=== PATIENT | male | born 1965 | race Two or more races ===

== ENCOUNTER 2023-06-28 15:47 | Inpatient (IN) | payer MEDICAID, OTHER ==
[~2023-06-28] VITALS: Ht 167.6 cm; Wt 83.7 kg
[2023-06-28 16:33] VITALS: PULSE 60; RESP 18; O2SAT 98
[2023-06-28] MEDS: SODIUM CHLORIDE 0.9% 500 ML IVB ONE (16:50)
[2023-06-28 16:52] LABS: Basophils # (auto) 0.1 10 ^3/uL (0-0.2); Basophils % (auto) 0.6 % (0.0-2.0); Eosinophils # (auto) 0.1 10 ^3/uL (0-0.8); Eosinophils % (auto) 1.6 % (0.0-7.0); Hematocrit 40.6 % (41.0-53.0); Hemoglobin 14.1 g/dL (13.5-17.5); Lymphocytes # (auto) 1.4 10 ^3/uL (0.4-5.4); Lymphocytes % (auto) 14.9 % (10.0-50.0); Mean Corpuscular Hemoglobin 32.1 pg (28.0-32.0); Mean Corpuscular Hgb Conc. 34.9 g/dL (32.0-36.0); Monocytes # (auto) 0.5 10 ^3/uL (0-1.3); Monocytes % (auto) 5.4 % (0.0-12.0); Neutrophils # (auto) 7.2 10 ^3/uL (1.6-8.6); Neutrophils % (auto) 77.5 % (37.0-80.0); Nucleated Red Blood Cells % 0.1 %; Red Blood Cells 4.41 10^6/uL (4.5-5.90); Red Cell Distribution Width 13.7 % (11.8-14.3); White Blood Cell 9.3 10^3/uL (4.4-10.8)
[2023-06-28 17:10] LABS: Alanine Aminotransferase 25 U/L (7-40); Alkaline Phosphatase 71 U/L (46-116); Anion Gap 10 (5-15); Aspartate Aminotransferase 20 U/L (13-40); Bilirubin, Total 0.5 mg/dL (0.2-1.0); Blood Urea Nitrogen 13 mg/dL (9-23); Calcium 9.5 mg/dL (8.7-10.4); Carbon Dioxide 23 mmol/L (20-30); Chloride 105 mmol/L (98-107); Glucose 268 mg/dL (74-106); Lipase 63 U/L (12-53); Potassium 3.9 mmol/L (3.5-5.1); Sodium 138 mmol/L (136-145); Total Protein 6.8 g/dL (5.7-8.2)
[2023-06-28] MEDS: IOHEXOL 300 MG/ML 100ML BOTTLE IJ ONE (18:57)
[2023-06-28 19:40] VITALS: PULSE 60; RESP 12; O2SAT 99
[2023-06-28] MEDS: MORPHINE SULFATE 4 MG/ML SYR/VIAL IV ONE (22:08)
[2023-06-28] MEDS: ONDANSETRON HCL 4 MG/2 ML VIAL IV ONE (22:08)
[2023-06-28] MEDS ORDERED: HYDROcodone-ACET 5/325MG TAB PO PRN (22:15)
[2023-06-28] MEDS ORDERED: hydrALAZINE HCL 20 MG/ML VL IV PRN (22:15)
[2023-06-28] MEDS ORDERED: ACETAMINOPHEN 325 MG TAB PO PRN (22:15)
[2023-06-28] MEDS ORDERED: DOCUSATE SOD 100 MG CAP PO PRN (22:15)
[2023-06-28] MEDS ORDERED: DEXTROSE (50%) 50ML SYRG IV PRN (22:15)
[2023-06-28] MEDS: SODIUM CHLORIDE 0.9% 1,000 ML IV SCH (22:53)
[2023-06-28] MEDS: ASPirin 81 mg TAB PO ONE (22:53)
[2023-06-28] MEDS ORDERED: NITROGLYCERIN 0.4 MG SL TAB SL PRN (23:15)
[2023-06-28] MEDS ORDERED: MORPHINE SULFATE INJ 2 MG/ml SYRG IV PRN (23:15)
[2023-06-29] VITALS (11 sets, daily range): BP systolic 124–147; BP diastolic 65–85; PULSE 60–91; RESP 17–18; TEMP 97.2–98.6; O2SAT 95–99
[2023-06-29] MEDS: ACCU-CHEK COMFORT CURVE STRIP VI SCH (06:17)
[2023-06-29] MEDS: InsuLIN REG 1unit/0.01ml Soln (100units/ml) SC SCH ×2 (06:25→22:14)
[2023-06-29 07:34] LABS: Basophils # (auto) 0 10 ^3/uL (0-0.2); Basophils % (auto) 0.5 % (0.0-2.0); Eosinophils # (auto) 0.2 10 ^3/uL (0-0.8); Eosinophils % (auto) 1.8 % (0.0-7.0); Hematocrit 37.4 % (41.0-53.0); Hemoglobin 13.2 g/dL (13.5-17.5); Lymphocytes # (auto) 2.2 10 ^3/uL (0.4-5.4); Lymphocytes % (auto) 25.6 % (10.0-50.0); Mean Corpuscular Hemoglobin 32.3 pg (28.0-32.0); Mean Corpuscular Hgb Conc. 35.3 g/dL (32.0-36.0); Mean Corpuscular Volume 91.5 fL (80.0-100.0); Monocytes % (auto) 10.9 % (0.0-12.0); Neutrophils # (auto) 5.4 10 ^3/uL (1.6-8.6); Neutrophils % (auto) 61.2 % (37.0-80.0); Nucleated Red Blood Cells % 0.1 %; Red Blood Cells 4.09 10^6/uL (4.5-5.90); Red Cell Distribution Width 13.4 % (11.8-14.3); White Blood Cell 8.8 10^3/uL (4.4-10.8)
[2023-06-29 07:51] LABS: Alanine Aminotransferase 25 U/L (7-40); Albumin 3.8 g/dL (3.2-4.8); Alkaline Phosphatase 68 U/L (46-116); Anion Gap 7 (5-15); Aspartate Aminotransferase 22 U/L (13-40); Blood Urea Nitrogen 17 mg/dL (9-23); Carbon Dioxide 26 mmol/L (20-30); Chloride 105 mmol/L (98-107); Glucose 227 mg/dL (74-106); Potassium 4.2 mmol/L (3.5-5.1); Sodium 138 mmol/L (136-145)
[2023-06-29 07:52] LABS: Bilirubin, Total 0.4 mg/dL (0.2-1.0); Total Protein 5.9 g/dL (5.7-8.2)
[2023-06-29 09:28] LABS: INR 1.02 (0.9-1.15); Partial Thromboplastin Time 29.9 SEC (24.5-34.5); Prothrombin Time 10.7 sec (9.3-11.8)
[2023-06-29] MEDS ORDERED: SPIRONOLACTONE 25 MG TAB PO SCH (10:00)
[2023-06-29 11:07] LABS: Folate (Folic Acid) 18.47 ng/mL (>5.38)
[2023-06-29] MEDS: MORPHINE SULFATE INJ 2 MG/ml SYRG IV PRN (11:32)
[2023-06-29] MEDS: ASPirin 81 mg TAB PO SCH (13:08)
[2023-06-29] MEDS: LIDOCAINE 5% TOPICAL PATCH TOP ONE (13:18)
[2023-06-29] MEDS: ATORVASTATIN 20 MG TAB PO SCH (22:10)
[2023-06-30] VITALS (11 sets, daily range): BP systolic 98–140; BP diastolic 51–74; PULSE 59–71; RESP 16–18; TEMP 97.3–98.6; O2SAT 95–100
[2023-06-30] MEDS: ONDANSETRON HCL 4 MG/2 ML VIAL IV PRN
[2023-06-30 06:26] LABS: Anion Gap 6 (5-15); Carbon Dioxide 28 mmol/L (20-30); Chloride 104 mmol/L (98-107); Sodium 138 mmol/L (136-145)
[2023-06-30 06:27] LABS: Calcium 9.5 mg/dL (8.5-10.1)
[2023-06-30 06:32] LABS: BUN/Creatinine Ratio 10.1 (10.0-20.0); Blood Urea Nitrogen 8 mg/dL (9-23); Glucose 218 mg/dL (74-106); Triglycerides 264 mg/dL (< 150)
[2023-06-30 06:33] LABS: LDL Cholesterol 97 mg/dL (< 100)
[2023-06-30 06:34] LABS: Cholesterol 165 mg/dL (< 200); HDL Cholesterol 35 mg/dL (40-59)
[2023-06-30] MEDS: LIDOCAINE 5% TOPICAL PATCH TOP SCH (09:26)
[2023-07-01] VITALS (8 sets, daily range): BP systolic 110–148; BP diastolic 68–84; PULSE 62–79; RESP 16–20; TEMP 97.4–99.9; O2SAT 95–98
[2023-07-01] MEDS: INSULIN LANTUS (GLARGINE) 1 /0.01ml (100units/ml) SC ONE (18:05)
[2023-07-01] MEDS ORDERED: SPIR25TA8 PO (18:47)
[2023-07-01] MEDS ORDERED: ATOR-507 PO (18:47)
[2023-07-01] MEDS ORDERED: CARV6.2517 PO (18:47)
[2023-07-01] MEDS ORDERED: INSU100I4 SC (18:47)
[2023-07-01] MEDS ORDERED: ASPI-543 PO (18:47)
[2023-07-01] MEDS ORDERED: GABA300C PO (18:47)
[2023-07-01] MEDS: INSULIN LANTUS (GLARGINE) 1 /0.01ml (100units/ml) SC SCH (22:11)
[2023-07-02 00:26] VITALS: BP 120/71; PULSE 72; RESP 16; TEMP 97.7; O2SAT 97
== END 2023-07-02 02:39 | disposition short-term general hospital (02) | DRG 347 ==
LOC: EDBD 15:47 → ER 15:47 → TELE 23:03 → TELE-WESTW 06-29 01:30
PROVIDERS: ADMIT Nurse Practitioner Family; ATTEND Internal Medicine
DX: S32.020A Wedge compression fracture of second lumbar vertebra, initial encounter for closed fracture (principal); I21.A1 Myocardial infarction type 2; I50.22 Chronic systolic (congestive) heart failure; E11.22 Type 2 diabetes mellitus with diabetic chronic kidney disease; I13.0 Hypertensive heart and chronic kidney disease with heart failure and stage 1 through stage 4 chronic kidney disease, or unspecified chronic kidney disease; S32.039A Unspecified fracture of third lumbar vertebra, initial encounter for closed fracture; R55 Syncope and collapse; E66.9 Obesity, unspecified; E78.5 Hyperlipidemia, unspecified; N18.9 Chronic kidney disease, unspecified; I25.5 Ischemic cardiomyopathy; N28.1 Cyst of kidney, acquired; W19.XXXA Unspecified fall, initial encounter; Z86.73 Personal history of transient ischemic attack (TIA), and cerebral infarction without residual deficits; I25.2 Old myocardial infarction; Z83.3 Family history of diabetes mellitus; Z95.0 Presence of cardiac pacemaker; Y93.89 Activity, other specified; Y92.89 Other specified places as the place of occurrence of the external cause; Y99.8 Other external cause status; Z68.29 Body mass index [BMI] 29.0-29.9, adult
CPT/HCPCS: 36415; 70450; 71045; 71260; 74177; 76775; 80048; 80053; 80061; 82607; 82746; 82962; 83036; 83690; 84443; 84484; 85025; 85379; 85610; 85730; 93005; 93306; 93886; 93970; 99291; G0378; J1815; J2405

== ENCOUNTER 2024-01-08 07:07 | Emergency (ER) | payer MEDICAID ==
[~2024-01-08] VITALS: Ht 177.8 cm; Wt 91.0 kg
[~2024-01-08 07:07] MED LIST: ASPI-543 PO; ATOR-507 PO; CARV6.2517 PO; GABA300C PO; INSU100I4 SC; SPIR25TA8 PO
[2024-01-08 08:00] VITALS: PULSE 80; RESP 23; O2SAT 92
[2024-01-08 08:01] LABS: Basophils # (auto) 0.1 10 ^3/uL (0-0.2); Basophils % (auto) 0.4 % (0.0-2.0); Eosinophils # (auto) 0 10 ^3/uL (0-0.8); Hematocrit 36.8 % (41.0-53.0); Hemoglobin 13.2 g/dL (13.5-17.5); Lymphocytes # (auto) 1.2 10 ^3/uL (0.4-5.4); Lymphocytes % (auto) 7.8 % (10.0-50.0); Mean Corpuscular Hemoglobin 32.8 pg (28.0-32.0); Mean Corpuscular Hgb Conc. 35.9 g/dL (32.0-36.0); Mean Corpuscular Volume 91.3 fL (80.0-100.0); Monocytes # (auto) 1.4 10 ^3/uL (0-1.3); Monocytes % (auto) 9.1 % (0.0-12.0); Neutrophils # (auto) 12.8 10 ^3/uL (1.6-8.6); Neutrophils % (auto) 82.7 % (37.0-80.0); Platelet Count (auto) 203 10^3/uL (140-450); Red Blood Cells 4.03 10^6/uL (4.5-5.90); Red Cell Distribution Width 13.8 % (11.8-14.3); White Blood Cell 15.5 10^3/uL (4.4-10.8)
[2024-01-08 08:16] LABS: Alanine Aminotransferase 14 U/L (7-40); Albumin 4.2 g/dL (3.2-4.8); Alkaline Phosphatase 78 U/L (46-116); Anion Gap 11 (5-15); Aspartate Aminotransferase 12 U/L (13-40); BUN/Creatinine Ratio 12.7 (10.0-20.0); Blood Urea Nitrogen 13 mg/dL (9-23); Calcium 9.4 mg/dL (8.7-10.4); Carbon Dioxide 23 mmol/L (20-31); Chloride 100 mmol/L (98-107); Glucose 178 mg/dL (74-106); INR 1.09 (0.9-1.15); Partial Thromboplastin Time 30.7 SEC (24.5-34.5); Potassium 3.9 mmol/L (3.5-5.1); Prothrombin Time 11.5 sec (9.3-11.8); Sodium 134 mmol/L (136-145)
[2024-01-08 08:17] LABS: Bilirubin, Total 0.7 mg/dL (0.2-1.0); Total Protein 6.5 g/dL (5.7-8.2)
[2024-01-08] MEDS: PIPERACILLIN-TAZOB 3.375GM 100 ML IV ONE (09:34)
[2024-01-08] MEDS: HYDROcodone-ACET 5/325MG TAB PO ONE (10:00)
[2024-01-08] MEDS ORDERED: VANCOMYCIN PER PHARMACY 0 MG IV SCH (10:45)
[2024-01-08 10:54] LABS: COVID19 ANTIGEN SOFIA FIA NEGATIVE (NEGATIVE); Rapid Influenza A Negative (Negative); Rapid Influenza B Negative (Negative)
[2024-01-08] MEDS: VANCOMYCIN 1GM/250ML 250 ML IV SCH (12:25)
[2024-01-08] MEDS ORDERED: VANCOMYCIN 1GM/200ML PREMIX 250 ML IV ONE (12:27)
[2024-01-08 14:18] VITALS: BP 110/59; PULSE 75; RESP 21; TEMP 97.6; O2SAT 92
== END 2024-01-08 14:17 | disposition short-term general hospital (02) ==
LOC: EDBD 07:07 → ER 07:07
DX: I96 Gangrene, not elsewhere classified (principal); E11.52 Type 2 diabetes mellitus with diabetic peripheral angiopathy with gangrene; R07.89 Other chest pain; R79.89 Other specified abnormal findings of blood chemistry; I12.9 Hypertensive chronic kidney disease with stage 1 through stage 4 chronic kidney disease, or unspecified chronic kidney disease; E11.22 Type 2 diabetes mellitus with diabetic chronic kidney disease; N18.9 Chronic kidney disease, unspecified; E78.5 Hyperlipidemia, unspecified; I25.2 Old myocardial infarction; Z86.73 Personal history of transient ischemic attack (TIA), and cerebral infarction without residual deficits; Z95.0 Presence of cardiac pacemaker; Z87.891 Personal history of nicotine dependence; Z79.899 Other long term (current) drug therapy; Z79.82 Long term (current) use of aspirin; Z20.822 Contact with and (suspected) exposure to COVID-19
CPT/HCPCS: 36415; 71045; 73630; 80053; 83605; 84484; 85025; 85610; 85730; 87040; 87077; 87186; 87426; 87804; 93005; 96365; 96366; 96367; 99285; J2543; J3370